=== PATIENT | male | born 1960 | race African-American/Black ===

== ENCOUNTER 2022-11-12 10:05 | Inpatient (IN) | payer OTHER, MEDICAID ==
[~2022-11-12] VITALS: Ht 177.8 cm; Wt 71.7 kg
[2022-11-12] MEDS ORDERED: KETOROLAC 30MG/ML VIAL IV STA (10:15)
[2022-11-12 11:21] LABS: BASOPHILS % 0.6 % (0.0-2.0); EOSINOPHILS % 3.6 % (0.0-5.0); HEMATOCRIT. 38.4 % (42.0-52.0); HEMOGLOBIN. 13.1 g/dL (14.0-18.0); LYMPHOCYTES % 32.6 % (20.0-50.0); MEAN CORPUSCULAR HEMOGLOBIN 28.9 pg (28.0-32.0); MEAN CORPUSCULAR VOLUME 84.3 fL (80.0-94.0); MEAN PLATELET VOLUME 8.8 fl (7.4-10.4); MONOCYTES % 7.3 % (2.0-8.0); NEUTROPHILS % 55.9 % (40.0-76.0); PLATELET 198 x1000/uL (130-400); RED BLOOD CELL COUNT 4.55 mill/uL (4.7-6.1)
[2022-11-12 11:31] LABS: PROTHROMBIN TIME 10.3 sec (9.6-11.0)
[2022-11-12 11:49] LABS: CHLORIDE 113 mEq/L (98-107)
[2022-11-12] MEDS ORDERED: KETOROLAC 30MG/ML VIAL IV SCH (12:30)
[2022-11-12] MEDS ORDERED: ASPIRIN 325MG EC TABLET PO NR (13:00)
[2022-11-12] MEDS ORDERED: SODIUM CHLORIDE 0.9% 500 ML IV ONE (14:30)
[2022-11-12 17:21] LABS: CLARITY URINE CLEAR (CLEAR); COLOR URINE YELLOW (YELLOW); KETONES URINE NEGATIVE (NEGATIVE); LEUKOCYTE ESTERASE URINE NEGATIVE (NEGATIVE); NITRITE URINE NEGATIVE (NEGATIVE); OCCULT BLOOD URINE NEGATIVE (NEGATIVE); PH URINE 6.5 (4.5-8.0); PROTEIN URINE NEGATIVE (NEGATIVE); SPECIFIC GRAVITY URINE 1.019 (1.005-1.030)
[2022-11-12 17:41] LABS: *AMPHETAMINES SCREEN URINE PRESUMTIVE POSITIVE (NEGATIVE); *BARBITURATES SCREEN URINE NEGATIVE (NEGATIVE); *BENZODIAZEPINES SCREEN URINE NEGATIVE (NEGATIVE); *COCAINE SCREEN URINE PRESUMTIVE POSITIVE (NEGATIVE); CANNABINOID URINE SCREEN NEGATIVE (NEGATIVE); METHADONE URINE SCREEN NEGATIVE (NEGATIVE); OPIATES URINE SCREEN NEGATIVE (NEGATIVE); PHENCYCLIDINE URINE SCREEN PRESUMTIVE POSITIVE (NEGATIVE)
[2022-11-12] MEDS ORDERED: NITROGLYCERIN 0.4MG TABLET SL SL PRN (20:30)
[2022-11-12] MEDS ORDERED: ACETAMINOPHEN 325MG TABLET PO PRN ×2 (20:30)
[2022-11-12] MEDS ORDERED: CLONIDINE 0.1MG TABLET PO PRN (20:30)
[2022-11-12] MEDS ORDERED: DOCUSATE SODIUM 100MG CAPSULE PO PRN (20:30)
[2022-11-12] MEDS ORDERED: GUAIFENESIN 200MG/10ML SUGAR FREE UDC PO PRN (20:30)
[2022-11-12] MEDS ORDERED: IPRATROPIUM/ALBUTEROL 0.5-3(2.5)MG/3ML NEB NEB PRN (20:30)
[2022-11-12] MEDS ORDERED: NA PHOS,M-B/NA PHOS,DI-BA ENEMA 118ML PR PRN (20:30)
[2022-11-12] MEDS ORDERED: MAGNESIUM/ALUMINUM HYDROXIDE/SIMETHICONE 30ML UDC PO PRN (20:30)
[2022-11-12] MEDS ORDERED: ONDANSETRON HCL 4MG/2ML INJ IV PRN (20:30)
[2022-11-12] MEDS ORDERED: ZOLPIDEM TARTRATE 5MG TABLET PO PRN (21:00)
[2022-11-12 21:09] LABS: T4 FREE 0.94 ng/dL (0.76-1.46)
[2022-11-12] MEDS: FAMOTIDINE 20MG TABLET PO SCH (21:18)
[2022-11-12] MEDS: ENOXAPARIN 40MG/0.4ML SYR SUBCUT SCH (21:18)
[2022-11-12 21:27] LABS: VITAMIN B12 SERUM > 2000.0 pg/mL (211-911)
[2022-11-13 05:20] LABS: BASOPHILS % 0.8 % (0.0-2.0); EOSINOPHILS % 4.3 % (0.0-5.0); HEMATOCRIT. 40.1 % (42.0-52.0); HEMOGLOBIN. 13.8 g/dL (14.0-18.0); MEAN CORPUSCULAR HEMOGLOBIN 29.1 pg (28.0-32.0); MEAN CORPUSCULAR VOLUME 84.6 fL (80.0-94.0); MEAN PLATELET VOLUME 8.6 fl (7.4-10.4); MONOCYTES % 7.1 % (2.0-8.0); NEUTROPHILS % 41.8 % (40.0-76.0); PLATELET 203 x1000/uL (130-400); RED BLOOD CELL COUNT 4.74 mill/uL (4.7-6.1); RED CELL DISTRIBUTION WIDTH 13.9 % (11.6-14.6)
[2022-11-13 05:39] LABS: CHLORIDE 111 mEq/L (98-107)
[2022-11-13 05:50] LABS: PHOSPHORUS 3.4 mg/dL (2.5-4.9)
[2022-11-13 05:56] LABS: CREATINE KINASE MB FRACTION 2.1 ng/mL (0.5-3.6)
[2022-11-13] MEDS: FAMOTIDINE 20MG TABLET PO SCH ×2 (09:19→21:18)
[2022-11-13] MEDS: ASPIRIN 325MG EC TABLET PO SCH (09:19)
[2022-11-13 11:00] VITALS: BP 135/72
[2022-11-13 12:00] VITALS: BP 135/72
[2022-11-13] MEDS ORDERED: ALBUTEROL (0.083%) 2.5MG/3ML NEB HHN PRN (14:00)
[2022-11-13] MEDS ORDERED: IPRATROPIUM BROMIDE (0.02%) 0.5MG/2.5ML NEB HHN PRN (14:00)
[2022-11-13 16:00] VITALS: BP 149/89
[2022-11-13 20:00] VITALS: BP 119/64
[2022-11-13] MEDS: KETOROLAC 15MG/ML VIAL IV PRN (21:18)
[2022-11-13] MEDS: ENOXAPARIN 40MG/0.4ML SYR SUBCUT SCH (21:20)
[2022-11-14] VITALS: BP 133/77
[2022-11-14 04:00] VITALS: BP 123/69
[2022-11-14 08:00] VITALS: BP 126/82
[2022-11-14] MEDS: ASPIRIN 325MG EC TABLET PO SCH (08:38)
[2022-11-14] MEDS: FAMOTIDINE 20MG TABLET PO SCH ×2 (08:38→20:55)
[2022-11-14 12:00] VITALS: BP 131/76
[2022-11-14 16:00] VITALS: BP 140/72
[2022-11-14] MEDS: KETOROLAC 15MG/ML VIAL IV PRN (17:09)
[2022-11-14 20:00] VITALS: BP 124/56
[2022-11-14] MEDS: ENOXAPARIN 40MG/0.4ML SYR SUBCUT SCH (20:54)
[2022-11-15] VITALS: BP 132/68
[2022-11-15 04:00] VITALS: BP 119/66
[2022-11-15 08:00] VITALS: BP 115/66
[2022-11-15] MEDS: ASPIRIN 325MG EC TABLET PO SCH (08:14)
[2022-11-15] MEDS: FAMOTIDINE 20MG TABLET PO SCH (08:14)
[2022-11-15] MEDS ORDERED: ASPI-1406 MT (09:18)
[2022-11-15 09:44] VITALS: BP 115/66
== END 2022-11-15 10:10 | disposition home or self-care (01) | DRG 282 ==
LOC: ER 10:05 → EDBEDREQTM 18:39 → EDBEDREQ 18:39 → MICUSO 20:26 → 7WST 11-13 11:40
PROVIDERS: ADMIT Internal Medicine; ATTEND Internal Medicine
DX: I21.4 Non-ST elevation (NSTEMI) myocardial infarction (principal); I10 Essential (primary) hypertension; F19.10 Other psychoactive substance abuse, uncomplicated; Z79.82 Long term (current) use of aspirin; I25.2 Old myocardial infarction
CPT/HCPCS: 36415; 71045; 74176; 80053; 80061; 80305; 80320; 81003; 82550; 82553; 82607; 82746; 82962; 83036; 83540; 83550; 83735; 83880; 84100; 84439; 84443; 84484; 85025; 93005; 93306; 93970; 99285; J1650; J1885; J7040; G0480

== ENCOUNTER 2025-01-05 10:04 | Emergency (ER) | payer MEDICARE, MEDICAID ==
[~2025-01-05] VITALS: Ht 175.3 cm; Wt 73.0 kg
[~2025-01-05 10:04] MED LIST: ASPI-1406 MT
[2025-01-05 10:09] VITALS: O2SAT 98
[2025-01-05 10:50] LABS: BASOPHILS % 0.9 % (0.0-2.0); EOSINOPHILS % 0.7 % (0.0-5.0); HEMATOCRIT. 43.2 % (42.0-52.0); HEMOGLOBIN. 14.6 g/dL (14.0-18.0); LYMPHOCYTES % 29.9 % (20.0-50.0); MEAN CORPUSCULAR HEMOGLOBIN 28.9 pg (28.0-32.0); MEAN CORPUSCULAR HGB CONC 33.8 g/dL (31.0-37.0); MEAN CORPUSCULAR VOLUME 85.4 fL (80.0-94.0); MEAN PLATELET VOLUME 8.8 fl (7.4-10.4); MONOCYTES % 5.5 % (2.0-8.0); PLATELET 192 x1000/uL (130-400); RED BLOOD CELL COUNT 5.06 mill/uL (4.7-6.1); RED CELL DISTRIBUTION WIDTH 14.3 % (11.6-14.6); WHITE BLOOD COUNT 6.5 x1000/uL (4.5-11.0)
[2025-01-05] MEDS: SODIUM CHLORIDE 0.9% 1,000 ML IV ONE (10:51)
[2025-01-05 10:53] LABS: CLARITY URINE CLEAR (CLEAR); COLOR URINE YELLOW (YELLOW); GLUCOSE URINE NEGATIVE (NEGATIVE); KETONES URINE NEGATIVE (NEGATIVE); LEUKOCYTE ESTERASE URINE NEGATIVE (NEGATIVE); NITRITE URINE NEGATIVE (NEGATIVE); OCCULT BLOOD URINE NEGATIVE (NEGATIVE); PROTEIN URINE 1+ (NEGATIVE); SPECIFIC GRAVITY URINE 1.006 (1.005-1.030); UROBILINOGEN URINE 0.2 E.U./dL (0.2-1.0)
[2025-01-05 10:55] LABS: CHLORIDE 107 mEq/L (98-107); POTASSIUM 4.5 mEq/L (3.5-5.1); SODIUM 141 mEq/L (136-145)
[2025-01-05 10:56] LABS: CARBON DIOXIDE 28 mEq/L (21-32)
[2025-01-05 10:57] LABS: CALCIUM 9.4 mg/dL (8.7-10.4)
[2025-01-05 11:01] LABS: GLUCOSE 98 mg/dL (70-105); UREA NITROGEN BLOOD 12 mg/dL (9-23)
[2025-01-05 11:02] LABS: ETHANOL BLOOD < 10 mg/dL (<10)
[2025-01-05 11:18] LABS: *AMPHETAMINES SCREEN URINE NEGATIVE (NEGATIVE); *BARBITURATES SCREEN URINE NEGATIVE (NEGATIVE); *BENZODIAZEPINES SCREEN URINE NEGATIVE (NEGATIVE); *COCAINE SCREEN URINE PRESUMPTIVE POSITIVE (NEGATIVE); CANNABINOID URINE SCREEN NEGATIVE (NEGATIVE); ECSTASY MDMA SCREEN URINE NEGATIVE (NEGATIVE); METHADONE URINE SCREEN NEGATIVE (NEGATIVE); OPIATES URINE SCREEN NEGATIVE (NEGATIVE); PHENCYCLIDINE URINE SCREEN PRESUMTIVE POSITIVE (NEGATIVE)
[2025-01-05 11:19] LABS: SQUAMOUS EPITHELIAL CELL URINE RARE /lpf (RARE/1+); WBC URINE 0-2 /hpf (0-2)
[2025-01-05 11:20] LABS: BACTERIA URINE NONE SEEN; RBC URINE NONE SEEN /hpf (0-2)
[2025-01-05 12:48] VITALS: BP 169/94; PULSE 59; RESP 12; TEMP 36.9; O2SAT 98
== END 2025-01-05 12:51 | disposition home or self-care (01) ==
LOC: ER 10:04
DX: R53.1 Weakness (principal); F19.10 Other psychoactive substance abuse, uncomplicated; F17.200 Nicotine dependence, unspecified, uncomplicated; F14.10 Cocaine abuse, uncomplicated; F12.10 Cannabis abuse, uncomplicated; F15.10 Other stimulant abuse, uncomplicated; Z79.82 Long term (current) use of aspirin
CPT/HCPCS: 80305; 80048; 81003; 80320; 82962; 85025; 36415; 99284; J7030; G0480